=== PATIENT | female | born 2005 | race Caucasian/White ===

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

== ENCOUNTER 2024-08-20 14:57 | Outpatient (CLI) | payer OTHER, SELFPAY ==
--- NOTE | 2024-08-20 15:01 | XR_ITS ---
FINAL REPORT CLINICAL HISTORY: Pain, fell 1 yr ago onto a rock, knot came up 2 days after that fall. BB marker placed at site of where there is a knot COMPARISON: 09/22/2023 FINDINGS: LEFT KNEE Three views of the left knee were obtained. There is a skin marker overlying the tibial tuberosity. There is no acute fracture or dislocation. The joint spaces are preserved. There is no joint effusion. No acute soft tissue abnormality is seen. IMPRESSION: No acute bony abnormality. Reviewed, Interpreted and Dictated by David Burgess MD Transcribed by Debbie Head Authenticated and [facility]
== END 2024-08-20 23:59 | disposition home or self-care (01) ==
LOC: RAD 14:58
PROVIDERS: PCP Nurse Practitioner Family; Visit Provider Nurse Practitioner Family
DX: M25.562 Pain in left knee (principal); G89.29 Other chronic pain
CPT/HCPCS: 73562